=== PATIENT | female | born 1940 | race Caucasian/White ===

== ENCOUNTER 2018-07-28 10:16 | Emergency (ER) | payer MEDICARE ==
[2018-07-28 10:30] VITALS: BP 166/82
--- NOTE | 2018-07-28 10:35 | UC ---
Skin Complaint HPI - HPI Summary HPI Summary: This patient is a 78 year old female presenting to [facility] [place] with a chief complaint of bug bite since 6 days ago. She noticed a bug bite in the groin area. Patient states that she frequently gets bites and guesses that it may be a spider. The bite area has been white with surrounding erythema. Yesterday, the area began discharging a foul-smelling liquid. The pain is rated 2/10 in severity. Symptoms aggravated by nothing. Symptoms alleviated by nothing. The patient treated the sx with Neosporin to no relief. Patient denies fever, chills, or any other medical problems. - History of Current Complaint Chief Complaint: AURELIANOkin Stated Complaint: SKIN ISSUE Hx Obtained From: Patient Onset/Duration: Gradual Onset, Lasting Days, Still Present Skin Exposure Onset/Duration: Days Ago Timing: Constant Onset Severity: Mild Current Severity: Mild Pain Intensity: 3 Pain Scale Used: 0-10 Numeric Location: Other - groin Character: Redness, Painful Aggravating Factor(s): Nothing Alleviating Factor(s): Nothing Associated Signs & Symptoms: Positive: Negative - fever, chills Related History: Insect Bite/Sting - Allergy/Home Medications Allergies/Adverse Reactions: Allergies Allergy/AdvReac Type Severity Reaction Status Date / Time doxycycline [From Vibramycin] Allergy Rash Verified 07/28/18 10:31 meperidine [From Demerol] Allergy Hives Verified 07/28/18 10:30 Sulfa (Sulfonamide Allergy Hives Verified 07/28/18 10:31 Antibiotics) Review of Systems Constitutional: Negative - Fever, Chills Skin: Negative, Rash - Red rash with discharge Eyes: Negative ENT: Negative Respiratory: Negative Cardiovascular: Negative Gastrointestinal: Negative Genitourinary: Negative Motor: Negative Neurovascular: Negative Musculoskeletal: Negative Neurological: Negative Psychological: Negative Is Patient Immunocompromised?: No All Other Systems Reviewed And Are Negative: Yes PMH/Surg Hx/FS Hx/Imm Hx Previously Healthy: Yes Endocrine History: Thyroid Disease Other Endocrine History: negative Other Cardiovascular History: Negative: Hypertension Respiratory History: Pneumonia Other Respiratory History: Negative: COPD, asthma GI/ History: Other - Colitis Other GI/ History: negative Other Neurological History: negative Other Psychological History: negative Other Cancer History: negative - Surgical History Surgical History: Yes Surgery Procedure, Year, and Place: cataract repair, septoplasty for deviated septum, polyps sinus 1980s,knee left,bladder cauterization, d/c,appendectomy, tonsilectomy,Bilateral Shoulder surgerys for frozen shoulder, - Family History Known Family History: Negative: Hypertension, Diabetes - Social History Alcohol Use: Daily Alcohol Amount: 2 glasses of wine with dinner Substance Use Type: None Smoking Status (MU): Former Smoker - Immunization History Most Recent Influenza Vaccination: fall 2013 Most Recent Tetanus Shot: unknown Most Recent Pneumonia Vaccination: at age 66 Physical Exam - Summary Physical Exam Summary: Appearance: Well-Appearing, No Pain Distress, Well-Nourished Eyes: conjunctiva clear, no discharge ENT: Hearing grossly normal, no muffled/hoarse voice. Neck: Normal, Supple Respiratory/Lung Sounds: Lungs clear, Normal breath sounds, No respiratory distress, No accessory muscle use Cardiovascular: RRR, No murmur Abdomen: Nontender, Soft, no guarding, not distended Bowel Sounds: Present Musculoskeletal: Normal Neurological: Alert, muscle tone normal Psychiatric:Normal, age appropriate behavior Skin: 1.5cm size swelling with serosanguinous drainage in right labia , upon pressure, fluid was expressed out Triage Information Reviewed: Yes Vital Signs: Initial Vital Signs Temp 97.5 F 07/28/18 10:26 Pulse 92 07/28/18 10:26 Resp 16 07/28/18 10:26 BP 166/82 07/28/18 10:26 Pulse Ox 100 07/28/18 10:26 Course/Dx - Course Course Of Treatment: This patient is a 78 year old female presenting to [facility] [place] with a chief complaint of bug bite since 6 days ago. She noticed a bug bite in the groin area. The bite area has been white with surrounding erythema. Obtained a small amount of pus for culture. With pressure, most of the pus was expressed out .Patient was diagnosed with abscess and bug bite. Patient will be discharged with prescription for clindamycin and advised to follow up with PCP. The patient is agreeable with this plan. - Diagnoses Provider Diagnoses: abscess Discharge - Sign-Out/Discharge Documenting (check all that apply): Patient Departure All imaging exams completed and their final reports reviewed: No Studies - Discharge Plan Condition: Stable Disposition: HOME Prescriptions: Clindamycin Cap(NF) [Clindamycin Cap 300 mg Cap(NF)] 300 mg PO TID 10 Days #30 cap Patient Education Materials: Insect Bite or Sting (ED), Abscess (ED) Referrals: Hasmukh Varela MD [Primary Care Provider] - 1 Week Additional Instructions: Please start taking the medication as prescribed to the pharmacy . Follow up with your primary care doctor in 1 week Patients blood pressure slightly high in Urgent care today , plan follow up with PCP for better control Return to Urgent care / ER if symptoms get worse. - Billing Disposition and Condition Condition: STABLE Disposition: Home - Attestation Statements Document Initiated by Nicholas: Yes Documenting Scribe: Estefany Christiansen Provider For Whom Nicholas is Documenting (Include Credential): Nora Fu MD Scribe Attestation: Estefany Ventura, scribed for Nora Fu MD on 07/28/18 at 1401. Scribe Documentation Reviewed: Yes Provider Attestation: The documentation as recorded by the Estefany gotti accurately reflects the service I personally performed and the decisions made by me, Nora Fu MD
--- NOTE | 2018-07-29 07:53 | UC ---
- Progress Note Progress Note: MRSA neg S. Aureus neg culture pending pt on clinda ljj 07/29/2018 Discharge - Sign-Out/Discharge Documenting (check all that apply): Patient Departure All imaging exams completed and their final reports reviewed: No Studies - Discharge Plan Condition: Stable Disposition: HOME Prescriptions: Clindamycin Cap(NF) [Clindamycin Cap 300 mg Cap(NF)] 300 mg PO TID 10 Days #30 cap Patient Education Materials: Insect Bite or Sting (ED), Abscess (ED) Referrals: Hasmukh Varela MD [Primary Care Provider] - 1 Week Additional Instructions: Please start taking the medication as prescribed to the pharmacy . Follow up with your primary care doctor in 1 week Patients blood pressure slightly high in Urgent care today , plan follow up with PCP for better control Return to Urgent care / ER if symptoms get worse. - Billing Disposition and Condition Condition: STABLE Disposition: Home
== END 2018-07-28 11:08 | disposition home or self-care (01) ==
LOC: UCEAST 10:16
DX: L02.214 Cutaneous abscess of groin (principal); Z88.1 Allergy status to other antibiotic agents; Z88.5 Allergy status to narcotic agent; Z88.2 Allergy status to sulfonamides; Z87.891 Personal history of nicotine dependence
CPT/HCPCS: 87070; 87205; 87640; 87641; 99212; G0463

== ENCOUNTER → 2019-09-09 | Day surgery (SDC) | payer MEDICARE ==
[~2019-09-09] MED LIST: Acetaminophen TAB* 325 MG ONE; Acetaminophen TAB* 325 MG PO PRN; BSS OPTH.SOL* BTL ONE; Bacitracin OINTMENT* 0.5% 0.5 oz TUBE ONE; Bacitracin OPHTH.OINT* 3.5 GM ONE; Buffered Lidocaine 1% SYRIN* 1 ML/SYRINGE INTRADERM ONE; Cyclopentolate 1% OPTH.SOL* 2 ML BTL ONE; Ketorolac 0.5% OPHTH (NF) 0.5 % 5 ML BTL ONE; Lidocaine 1% MPF ** 5 ML VIAL ONE; Lidocaine 1% w EPI 1:100,000* MDV 20 ML VIAL ONE; Lidocaine 2% PF * 5 ML VIAL ONE; Midazolam* 1 MG/ML 5 ML VIAL (5 MG) ONE; Neomycin/Polymy/Dex OPHTH.OIN* 3.5 GM ONE; Ondansetron INJ* 2 MG/ML VIAL ONE; Phenylephrine OPHTH SOL 2.5%* 2 ML ONE; Propofol* 10 MG/ML 20 ML BTL ONE; Tetracaine 0.5% OPTH.SOL 4 ML* 1 DROP BTL ONE; Tropicamide 1% OPTH.SOL* BTL ONE; fentaNYL* 50 MCG/ML 2 ML VIAL (100 MCG VIAL) ONE
[2019-09-09 13:22] VITALS: BP 164/83
--- NOTE | 2019-09-09 14:38 | OP ---
DATE OF OPERATION: 09/09/19 [facility] DATE OF : 42 SURGEON: Jorge Alberto George MD FORESTRY INSTRUCTOR: None. PRE-OP DIAGNOSES: Entropion, right lower lid; chalasia, right lower lid. POST-OP DIAGNOSES: Entropion, right lower lid; chalazia, right lower lid. OPERATIVE PROCEDURE: Repair of entropion, right lower lid with lateral tarsal shortening and retractor advancement, incision and curettage of chalasia, right lower lid. COMPLICATIONS: None. BLOOD LOSS: Less than 5 cc. DESCRIPTION OF PROCEDURE: The patient was brought to the operating room and received a small amount of intravenous sedation. A drop of tetracaine was placed in her right eye. Approximately 1.5 cc of 1% lidocaine with epinephrine was injected in a subciliary fashion on the right lower lid as well as at the lateral canthal angle down to the periosteum. The patient was prepped and draped in the usual sterile fashion for ophthalmic surgery and attention was directed to the right eye. A chalazia clamp was placed across the right lower lid and the eyelid was everted. A #11 Bard-Ventura blade was used to make a small vertically oriented incision in the palpebral conjunctiva into the body of the chalazion. Curettage was performed. The chalazia clamp was removed. At this point, a forward traction suture was placed in the central aspect of the right lower lid at the margin to put the lid on upward traction. A subciliary incision from the inferior punctum to lateral canthus was created with a 15 Bard -Ventura blade through the skin. The orbicularis muscle was tented up and a Remedios scissor was used to incise horizontally, medially, and temporarily. The septum was identified and violated. Periorbital fat was retracted and the dehisced retractor was located. This was then attached to the inferior tarsal plate with interrupted 5-0 Vicryl suture. The wound was then closed with a running 6-0 nylon suture. At this point, a lateral canthotomy and inferior cantholysis was performed with a Valadez scissor. The lower lid was mobilized. The anterior and posterior lamella were with sharp and blunt dissection using a Remedios scissor. The conjunctiva was cut horizontally off the inferior aspect of the posterior lamella. The margin was gently trimmed off of the tarsal plate as well. A 15 Bard-Ventura blade was used to gently scrape the surface of the tarsal plate to clear it. Approximately 4 mm of tarsal plate was then cut and removed. Two 4-0 Vicryl sutures were placed separately through the lateral aspect of the remaining tarsal plate. These were independently placed to the periosteum at the lateral canthal angle, slightly superior and posterior to that point. The sutures were tied securely, thus securing the tarsal plate superiorly and posteriorly against the eye and shortening the lid. Sutures were trimmed. The skin was closed with interrupted 6-0 nylon sutures. At the end of the case, there was no active bleeding and the eyelid position looked appropriate. Topical bacitracin ointment was applied. The patient was sent to recovery room in stable condition with postoperative instructions and followup appointment given. [id number]/CPS #: [id number]
== END | disposition home or self-care (01) ==
LOC: OREAST 09:34
PROVIDERS: ATTEND Ophthalmology
DX: H02.002 Unspecified entropion of right lower eyelid (principal); H00.12 Chalazion right lower eyelid; E03.9 Hypothyroidism, unspecified; M19.90 Unspecified osteoarthritis, unspecified site; Q61.3 Polycystic kidney, unspecified; Z87.891 Personal history of nicotine dependence; M18.10 Unilateral primary osteoarthritis of first carpometacarpal joint, unspecified hand
CPT/HCPCS: A9270-GY; J2250; J2405; J2704; J3010